=== PATIENT | male | born 1955 | race Caucasian/White ===

== ENCOUNTER 2016-09-21 20:22 | Emergency (ER) | payer BC ==
--- NOTE | 2016-09-21 20:33 | EDPHY ---
H & P Stated Complaint: dyspnea, Hx of a fib Time Seen by Provider: 09/21/16 20:31 HPI/ROS: CHIEF COMPLAINT: Dyspnea HISTORY OF PRESENT ILLNESS: This patient is a 60-year-old male with history of atrial fibrillation status post ablation who presents to the Emergency Department complaining of acute onset dyspnea and heart palpitations today. He hiked [facility] ([phone] feet) today. At time of arrival, he reports improvement to his dyspnea since initial onset but continues to complain of intermittent palpitations. He denies chest pain, lightheadedness, diaphoresis, nausea, or additional complaints. No recent cough, cold, or fever. His atrial fibrillation has been well-managed for the past three years following a cardiac ablation. REVIEW OF SYSTEMS: A ten point review of systems was performed and is negative with the exception of the items mentioned in the HPI. 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 - Physical Exam Exam: General Appearance: Alert. Vital signs reviewed. BP 130/90 Eyes: Pupils equal and round, no conjunctival injection, no discharge. Anicteric. ENT, Mouth: Mucous membranes are moist, no oropharyngeal erythema or edema. Neck: No lymphadenopathy, supple, no jugular venous extension Respiratory: Lungs are clear to auscultation; no wheezes, rales, or rhonchi. Cardiovascular: Frequent ectopy, regular rate; no murmur, rub, or gallop. Gastrointestinal: Abdomen is soft and nontender, no masses or organomegaly, bowel sounds normal. Skin: Warm and dry, no rashes on exposed skin, normal color. Back: Nontender to palpation over the thoracolumbar spine. No CVAT. Extremities: No lower extremity edema, no calf tenderness or swelling. Neurological: Alert and oriented. Moving all four extremities easily and equally. Psychiatric: Normal affect. Constitutional: Initial Vital Signs Temperature (C) 37 C 09/21/16 20:25 Heart Rate 94 09/21/16 20:25 Respiratory Rate 16 09/21/16 20:25 Blood Pressure 130/90 H 09/21/16 20:25 O2 Sat (%) 93 09/21/16 20:25 O2 Delivery Mode Room Air Allergies/Adverse Reactions: Penicillins Allergy (Verified 09/21/16 20:25) Home Medications: Medication Instructions Recorded NK [No Known Home Meds] 09/21/16 Medical Decision Making - Diagnostics EKG Interpretation: The 12 lead EKG was interpreted by myself: Sinus rhythm, rate 86; multiple atrial premature complexes. See hard copy and/or "tracemaster" electronic copy for interpretation. ED Course/Re-evaluation: 60-year-old male with history of well-controlled a fib presents with complaint of dyspnea and palpitations beginning when returning home from a significant hike at high elevation today. At time of presentation, he is alert and resting comfortably. He is not tachycardic or hypoxemic. There is frequent ectopy on exam. No jugular venous distention. Will proceed with labs, chest x-ray, and EKG. EKG reveals PACs (as above). Sinus rhythm. Chest x-ray shows diffuse interstitial lung disease with reduced diffusion of pulmonary blood flow the does not appear to be related to elevated right heart pressures. He has no known history of lung disease. I spoke with the radiologist, Dr. Ball, and asked if this chest x-ray could be consistent with high-altitude pulmonary edema. He believes that it could be consistent with resolving high altitude pulmonary edema, which would fit with the patient' s history and presentation--[place] [phone] [place] with unexpected dyspnea while hiking that is improved now that he has descended to a lower altitude. Never the less, I feel that he should follow up with a cash room clerk, as his x- ray is abnormal and will likely need to be repeated. I am referring him to the local pulmonology group. We have also discussed the danger signs that should prompt him to be re-evaluated. Differential Diagnosis: Differential diagnosis includes but is not limited to high altitude pulmonary edema, interstitial lung disease of unknown etiology, pulmonary infectious process, COPD, asthma, pulmonary embolus and congestive heart failure. - Data Points Laboratory Results: Laboratory Results 09/21/16 20:40 09/21/16 20:40 Departure - Departure Disposition: Home, Routine, Self-Care Clinical Impression: PAC (premature atrial contraction), Interstitial lung disease Condition: Good Instructions: Pulmonary Edema (ED), Premature Atrial Contractions (ED) Additional Instructions: I recommend that you call Dr. Ross's office tomorrow to arrange a follow up appointment. Any of his partners could see you also. As we discussed, your chest xray appearance, along with the shortness of breath that you experienced today, could be manifestations of high altitude pulmonary edema (from which you are recovering). You will need to have a repeat chest xray. If you are worse in any way--more trouble breathing, fever, cough, chest pain, any new or concerning symptoms--you should be re-evaluated immediately. Referrals: SRAVANTHI AMOS [Other] - As per Instructions Judd Muñiz MD [Medical Doctor] - As per Instructions Bassam Ross MD [Medical Doctor] - As per Instructions Report Scribed for: Emmy Pelaez Report Scribed by: Disha Sharp Date of Report: 09/21/16 Time of Report: 20:38 Physician Review and Approval Statement: 09/21/16 20:32 Portions of this note were transcribed by the medical assistant float. I, Dr. Emmy Pelaez, personally performed the history, physical exam, and medical decision- making; and confirmed the accuracy of the information in the transcribed note.
--- NOTE | 2016-09-21 20:36 | CPEKG ---
Heart Rate: 86 RR Interval: 698 P-R Interval: 148 QRSD Interval: 100 QT Interval: 364 QTC Interval: 436 P [place]: 77 QRS [place]: 21 T Wave [place]: 38 EKG Severity - ABNORMAL ECG - EKG Impression: SINUS RHYTHM EKG Impression: MULTIPLE ATRIAL PREMATURE COMPLEXES Electronically Signed By: Emmy Pelaez 21-Sep-2016 22:32:17
[2016-09-21 20:47] LABS: % IMMATURE GRANULYOCYTES 0.3 % (0.0-1.1); ABSOLUTE IMMATURE GRANULOCYTES 0.03 10^3/uL (0.00-0.10); ADD DIFF? NO; ADD MORPH? NO; ADD SCAN? NO; ATYPICAL LYMPHOCYTE FLAG 0 (0-99); FRAGMENT RBC FLAG 0 (0-99); HEMATOCRIT 43.6 % (40.0-51.0); HEMOGLOBIN 15.4 g/dL (13.7-17.5); LEFT SHIFT FLG 0 (0-99); LIPEMIA HEMOLYSIS FLAG 90 (0-99); MEAN CELL HEMOGLOBIN CONCENTR. 35.3 g/dL (32.4-36.7); MEAN CELL VOLUME 90.5 fL (81.5-99.8); MEAN PLATELET VOLUME 9.9 fL (8.7-11.7); PLATELET CLUMPS FLAG 10 (0-99); PLATELET COUNT 243 10^3/uL (150-400); RED BLOOD CELL COUNT 4.82 10^6/uL (4.40-6.38); RED CELL DISTRIBUTION WIDTH 11.9 % (11.5-15.2)
[2016-09-21 20:58] LABS: ANION GAP 11 mEq/L (8-16); CALCIUM 10.7 mg/dL (8.5-10.4); CARBON DIOXIDE 24 mEq/l (22-31); CHLORIDE 102 mEq/L (97-110); GLOMERULAR FILTRATION RATE > 60; GLUCOSE 95 mg/dL (70-100); SODIUM 137 mEq/L (134-144)
[2016-09-21 21:10] LABS: TROPONIN I < 0.012 ng/mL (0-0.034)
[2016-09-21 22:33] VITALS: BP 129/95; PULSE 73; RESP 20; TEMP 98.1; O2SAT 95
== END 2016-09-21 22:33 | disposition home or self-care (01) ==
DX: I49.1 Atrial premature depolarization (principal); J84.9 Interstitial pulmonary disease, unspecified